=== PATIENT | male | born 1990 ===

== ENCOUNTER 2020-12-11 15:03 | Emergency (ER) | payer OTHER, SELFPAY ==
--- NOTE | ~2020-12-11 | CT_ITS ---
EXAMINATION: CT RIGHT HUMERUS CLINICAL INFORMATION: Assess for possible fracture COMPARISON: Radiographs the same day TECHNIQUE: Multidetector CT scan of the distal right humerus. Multiplanar reconstructions. FINDINGS: The radiographic finding corresponds to a band of periosteal bone formation without any acute cortical disruption. Appearance is consistent with an old injury. Radial head and neck intact. Joint spaces preserved. CT/CT elbow RT wo con IMPRESSION: No acute fracture. Chronic findings as above.
--- NOTE | ~2020-12-11 | XR_ITS ---
EXAMINATION: LEFT FOREARM 2 VIEWS RIGHT FOREARM 2 VIEWS RIGHT FOREARM 2 VIEWS CHEST 1 VIEW RIGHT HUMERUS 2 VIEWS LEFT HUMERUS 2 VIEWS LEFT WRIST 4 VIEWS RIGHT WRIST 4 VIEWS CLINICAL INFORMATION: Trauma. Ecchymosis. COMPARISON: None TECHNIQUE: As above FINDINGS: Right hand the wrist: Intact. Joint spaces preserved. Scaphoid intact. Left hand and wrist: Intact as well. No fracture or dislocation. Right forearm humerus: No deformity. Joint spaces maintained. No gross elbow effusion. No head and neck intact. Left forearm and humerus: Similarly intact. No focal lesion. Chest one view: No focal abnormality. Heart and mediastinal normal. XR/XR humerus RT IMPRESSION: No fracture. Normal chest.
--- NOTE | ~2020-12-11 | XR_ITS ---
EXAMINATION: LEFT FOREARM 2 VIEWS RIGHT FOREARM 2 VIEWS RIGHT FOREARM 2 VIEWS CHEST 1 VIEW RIGHT HUMERUS 2 VIEWS LEFT HUMERUS 2 VIEWS LEFT WRIST 4 VIEWS RIGHT WRIST 4 VIEWS CLINICAL INFORMATION: Trauma. Ecchymosis. COMPARISON: None TECHNIQUE: As above FINDINGS: Right hand the wrist: Intact. Joint spaces preserved. Scaphoid intact. Left hand and wrist: Intact as well. No fracture or dislocation. Right forearm humerus: No deformity. Joint spaces maintained. No gross elbow effusion. No head and neck intact. Left forearm and humerus: Similarly intact. No focal lesion. Chest one view: No focal abnormality. Heart and mediastinal normal. XR/XR forearm RT 2V IMPRESSION: No fracture. Normal chest.
--- NOTE | ~2020-12-11 | XR_ITS ---
EXAMINATION: LEFT FOREARM 2 VIEWS RIGHT FOREARM 2 VIEWS RIGHT FOREARM 2 VIEWS CHEST 1 VIEW RIGHT HUMERUS 2 VIEWS LEFT HUMERUS 2 VIEWS LEFT WRIST 4 VIEWS RIGHT WRIST 4 VIEWS CLINICAL INFORMATION: Trauma. Ecchymosis. COMPARISON: None TECHNIQUE: As above FINDINGS: Right hand the wrist: Intact. Joint spaces preserved. Scaphoid intact. Left hand and wrist: Intact as well. No fracture or dislocation. Right forearm humerus: No deformity. Joint spaces maintained. No gross elbow effusion. No head and neck intact. Left forearm and humerus: Similarly intact. No focal lesion. Chest one view: No focal abnormality. Heart and mediastinal normal. XR/XR humerus LT IMPRESSION: No fracture. Normal chest.
--- NOTE | ~2020-12-11 | XR_ITS ---
EXAMINATION: LEFT FOREARM 2 VIEWS RIGHT FOREARM 2 VIEWS RIGHT FOREARM 2 VIEWS CHEST 1 VIEW RIGHT HUMERUS 2 VIEWS LEFT HUMERUS 2 VIEWS LEFT WRIST 4 VIEWS RIGHT WRIST 4 VIEWS CLINICAL INFORMATION: Trauma. Ecchymosis. COMPARISON: None TECHNIQUE: As above FINDINGS: Right hand the wrist: Intact. Joint spaces preserved. Scaphoid intact. Left hand and wrist: Intact as well. No fracture or dislocation. Right forearm humerus: No deformity. Joint spaces maintained. No gross elbow effusion. No head and neck intact. Left forearm and humerus: Similarly intact. No focal lesion. Chest one view: No focal abnormality. Heart and mediastinal normal. XR/XR hand wrist RT IMPRESSION: No fracture. Normal chest.
--- NOTE | ~2020-12-11 | XR_ITS ---
EXAMINATION: LEFT FOREARM 2 VIEWS RIGHT FOREARM 2 VIEWS RIGHT FOREARM 2 VIEWS CHEST 1 VIEW RIGHT HUMERUS 2 VIEWS LEFT HUMERUS 2 VIEWS LEFT WRIST 4 VIEWS RIGHT WRIST 4 VIEWS CLINICAL INFORMATION: Trauma. Ecchymosis. COMPARISON: None TECHNIQUE: As above FINDINGS: Right hand the wrist: Intact. Joint spaces preserved. Scaphoid intact. Left hand and wrist: Intact as well. No fracture or dislocation. Right forearm humerus: No deformity. Joint spaces maintained. No gross elbow effusion. No head and neck intact. Left forearm and humerus: Similarly intact. No focal lesion. Chest one view: No focal abnormality. Heart and mediastinal normal. XR/XR forearm LT 2V IMPRESSION: No fracture. Normal chest.
--- NOTE | ~2020-12-11 | XR_ITS ---
EXAMINATION: LEFT FOREARM 2 VIEWS RIGHT FOREARM 2 VIEWS RIGHT FOREARM 2 VIEWS CHEST 1 VIEW RIGHT HUMERUS 2 VIEWS LEFT HUMERUS 2 VIEWS LEFT WRIST 4 VIEWS RIGHT WRIST 4 VIEWS CLINICAL INFORMATION: Trauma. Ecchymosis. COMPARISON: None TECHNIQUE: As above FINDINGS: Right hand the wrist: Intact. Joint spaces preserved. Scaphoid intact. Left hand and wrist: Intact as well. No fracture or dislocation. Right forearm humerus: No deformity. Joint spaces maintained. No gross elbow effusion. No head and neck intact. Left forearm and humerus: Similarly intact. No focal lesion. Chest one view: No focal abnormality. Heart and mediastinal normal. XR/XR chest 1V IMPRESSION: No fracture. Normal chest.
--- NOTE | ~2020-12-11 | XR_ITS ---
EXAMINATION: LEFT FOREARM 2 VIEWS RIGHT FOREARM 2 VIEWS RIGHT FOREARM 2 VIEWS CHEST 1 VIEW RIGHT HUMERUS 2 VIEWS LEFT HUMERUS 2 VIEWS LEFT WRIST 4 VIEWS RIGHT WRIST 4 VIEWS CLINICAL INFORMATION: Trauma. Ecchymosis. COMPARISON: None TECHNIQUE: As above FINDINGS: Right hand the wrist: Intact. Joint spaces preserved. Scaphoid intact. Left hand and wrist: Intact as well. No fracture or dislocation. Right forearm humerus: No deformity. Joint spaces maintained. No gross elbow effusion. No head and neck intact. Left forearm and humerus: Similarly intact. No focal lesion. Chest one view: No focal abnormality. Heart and mediastinal normal. XR/XR hand wrist LT IMPRESSION: No fracture. Normal chest.
[2020-12-11 15:33] VITALS: BP 137/76; PULSE 89; RESP 18; TEMP 36.1; O2SAT 100; BMI 21.3
--- NOTE | 2020-12-11 17:27 | ED_ITS ---
HPI - Fall General Chief Complaint: Fall Stated Complaint: fall Time Seen by Provider: 12/11/20 16:54 Source: patient and other (residential staff member ) Mode of arrival: ambulatory Limitations: other (Developmental delay) History of Present Illness HPI Narrative: 30-year-old male with a past medical history of being developmental delay currently residing at a [facility] with [facility] staff member at bedside with reports of bruising on the patient's bilateral arms of unknown cause and unknown when it occurred. Apparently the patient was at his day program today and they noticed all the bruising the question the patient he initially said he fell then he told them that he did not fall. The [facility]dc does not know how he obtain all these bruises. On exam patient just shows all his bruises although does not tell me how he obtained the bruises. Related Data Allergies Allergy/AdvReac Type Severity Reaction Status Date / Time No Known Allergies Allergy Verified 12/11/20 15:38 Review of Systems Review of Systems: Constitutional : No changes in activity, No lethargy, No recent prior head injury, No agitation, No increased fussiness ENT/Mouth : No Ear Pain, No Nasal discharge/drainage Eyes: No Eye Pain, No Swelling, No Redness, No Foreign Body, No Vision Changes Cardiovascular : No Chest Pain, No SOB Respiratory : No Cough Gastrointestinal : No Nausea, No Vomiting, No abdominal Pain Genitourinary : No Dysuria, No Urinary Frequency, No Urinary Incontinence, No Urgency, No Flank Pain Musculoskeletal : Positive joint pain to b/l upper arms/elbow/forearms/hand/wrist, No neck stiffness, No back pain/injury Skin : No lacerations Neuro : No unsteady gait, No Paresthesias, No Loss of Consciousness, No altered mental status, No Headache Yes all other systems are reviewed and are negative [facility] Past Medical History Attestation statement: The following information was validated with the patient. Social History Social History Advance Directives: No Advance Directives Information Provided: No Physical Exam Vital Signs: Vital Signs: Last Vital Signs Temp 97.0 F 12/11/20 15:33 Pulse 89 12/11/20 15:33 Resp 18 12/11/20 15:33 BP 137/76 12/11/20 15:33 Pulse Ox 100 12/11/20 15:33 Body Mass Index 21.3 vital signs have been reviewed as normal and appeared to be correct. Blood pressure normal. Heart rate normal. Respiration rate normal. Temperature normal. Oxygen saturation normal. Appearance: Alert. Developmentally any delayed at baseline. No acute distress. Head: Normal external exam. Normocephalic. Atraumatic. Eyes: PERRLA. EOMI. Conjunctiva and sclera normal. Eyelids normal. ENT: Pharynx normal. Uvula midline. Moist mucous membranes. Neck: Normal inspection. Neck supple. FROM. No adenopathy. No meningeal signs. No signs of trauma. Nontender to mid cervical and bilateral paracervical musculature. CVS: Normal heart rate and rhythm. Heart sound normal. Pulses normal throughout. No murmurs/rales/gallops. Respiratory: No respiratory distress. Painless inspiration. Breath sounds normal. No wheezes/rales/rhonchi noted. Chest patient is also noted to have the old bruise to left upper anterior chest wall with mild tenderness to palpation. Not consistent with flail chest. No accessory muscle usage noted or decreased air movement noted. Abdomen: Soft and nontender. Bowel sounds normal in all 4 quadrants. No distention noted. No organomegaly noted. No visible injury noted. No signs of trauma. Back: Full range of motion noted. No ecchymoses/abrasions/lacerations/ rashes/lesion/induration/fluctuance or signs of infection noted. No visible injuries. Nontender to mid thoracic/lumbar spine and paraspinous musculature. Skin: Skin warm and dry. Normal skin color. Normal skin turgor. No rashes/lesions/lacerations noted. Extremities: Patient is noted to have multiple bruises on bilateral arms of different stages he is tender to bilateral arms from the upper humerus aspect to bilateral elbows bilateral forearms and bilateral hands and wrist. Patient has full range of motion of all joints of shoulder/elbow/wrist and hand and fingers. No obvious deformities are noted. No ligamentous laxity noted to any joints. Otherwise all other Extremities exhibit normal range of motion and nontender. Neuro: Developmentally delayed at baseline. No motor deficit. No sensory deficit. Reflexes normal. Normal steady gait. No focal neuro deficits noted. Vascular: + radial pulses/+ 2 distal pedal pulses/+2 dorsalis pedis b/l. Normal cap refill. No cyanosis noted to upper extremity nails and lower extremity toes nails. Course Course Course Narrative: 17pm - 30-year-old male with a past medical history of being developmental delay currently residing at a [facility] with [facility] staff member at bedside with reports of bruising on the patient's bilateral arms of unknown cause and unknown when it occurred. Apparently the patient was at his day program today and they noticed all the bruising the question the patient he initially said he fell then he told them that he did not fall. The [facility]dc does not know how he obtain all these bruises. On exam patient just shows all his bruises although does not tell me how he obtained the bruises. On exam patient is noted to have multiple different stage bruises to b/l arms and left upper anterior chest wall. No other signs of trauma/bruises to the rest of the body. Neck is supple and nontender. Pt has FROM of all joints. Nontender to abdomen. Lower extremities no signs of trauma. Plan: Xrays of arms and chest then re-evaluate. Reevaluation(s) Reevaluation #1: - x-ray of right forearm revealed minimal step-off within the distal humerus metaphysis aspect not reproduced on humeral series highly suspicious for a nondisplaced fracture. With overlying soft tissue swelling. - all other x-rays are within normal limits no acute processes or fractures noted. - therefore consulted with Orthopedics and they reported that since his only shadowing and one-view they are requesting a CT scan to make sure there is no more involvement into the joint and they reported that they would recommend a posterior long-arm splint and sling and follow-up. Therefore CT scan of right elbow ordered at this time. residential staff member updated she understands agrees with this plan. - Sign out to Shon Carter PA-C at this time pending above. Time: 18:51 MDM - Fall Medical Records Attestation: I reviewed the patient's medical records. Imaging Data Chest x-ray//bilateral forearm/hand and wrist xrays x-rays x-ray: Attestation: I personally reviewed and interpreted this imaging study as follows: Radiologist's impression: FINDINGS: Right hand the wrist: Intact. Joint spaces preserved. Scaphoid intact. Left hand and wrist: Intact as well. No fracture or dislocation. Right forearm humerus: No deformity. Joint spaces maintained. No gross elbow effusion. No head and neck intact. Left forearm and humerus: Similarly intact. No focal lesion. Chest one view: No focal abnormality. Heart and mediastinal normal.? XR/XR humerus RT IMPRESSION: No fracture. ? Normal chest.? On the AP forearm view, there is a minimal step off within the distal humeral metaphysis radial aspect not reproduced on the humeral series highly suspicious for a nondisplaced fracture. Overlying soft tissue swelling. Wet reading provided. Discharge Plan Discharge Clinical Impression: Closed fracture of distal end of right humerus, Multiple ecchymoses of both upper arms, Superficial bruising of chest wall Patient Disposition: Home, Self-Care Instructions: Elbow Fracture (ED), Contusion in Adults (ED), Ecchymosis (ED) Referrals: Elio Field MD [Physician] - 12/14/20 (Call Monday to make a follow-up appointment within a week) Print Language: Ch[place]
== END 2020-12-11 20:33 | disposition home or self-care (01) ==
PROVIDERS: Emergency Provider Emergency Medicine; PCP Internal Medicine
DX: S42.401A Unspecified fracture of lower end of right humerus, initial encounter for closed fracture (principal); S40.022A Contusion of left upper arm, initial encounter; S40.021A Contusion of right upper arm, initial encounter; S50.02XA Contusion of left elbow, initial encounter; S50.01XA Contusion of right elbow, initial encounter; S50.12XA Contusion of left forearm, initial encounter; S50.11XA Contusion of right forearm, initial encounter; S60.212A Contusion of left wrist, initial encounter; S60.211A Contusion of right wrist, initial encounter; S20.212A Contusion of left front wall of thorax, initial encounter; X58.XXXA Exposure to other specified factors, initial encounter; R62.50 Unspecified lack of expected normal physiological development in childhood; Y93.9 Activity, unspecified; Y92.049 Unspecified place in boarding-house as the place of occurrence of the external cause; Y99.9 Unspecified external cause status
CPT/HCPCS: 29105; 71045; 73060; 73090; 73110; 73130; 73200; 99283; 99284

== ENCOUNTER 2021-01-15 06:30 | Outpatient (REF) | payer OTHER, SELFPAY ==
[2021-01-15 07:49] LABS: MANUAL DIFF FLAG NO
[2021-01-15 08:00] LABS: Basophils Percent Auto 0.4 % (0-2); Eosinophils Absolute Auto 0.1 X10*3/uL (0.0-0.4); Eosinophils Percent Auto 1.5 % (0-4); Hemoglobin 13.7 g/dl (14.0-18.0); Imm Gran Abs Auto 0.04 X10*3/uL (0.00-0.03); Imm Gran Pct Auto 0.8 % (0.0-0.4); Immature Retic Fraction 7.7 % (2.3-13.4); Lymphocytes Absolute Auto 1.2 X10*3/uL (1.2-4.9); Lymphocytes Percent Auto 21.8 % (20-40); Mean Corpuscular HGB Conc 33.4 g/dl (31.0-36.0); Mean Corpuscular Hemoglobin 30.4 pg (27.0-33.0); Mean Corpuscular Volume 91.1 fL (80-98); Mean Platelet Volume 9.6 fL (9.4-12.4); Monocytes Absolute Auto 0.6 X10*3/uL (0.1-1.2); Monocytes Percent Auto 11.3 % (2-11); Neutrophils Absolute Auto 3.4 X10*3/uL (2.0-8.3); Neutrophils Percent Auto 64.2 % (45-73); Platelet Count 239 X10*3/uL (160-400); Red Cell Distribution Width 13.9 % (11.0-16.0); Reticulocyte Percent 1.8 % (0.5-1.8); Reticulocytes Absolute 0.083 X10*6/uL (0.026-0.095); White Blood Count 5.3 X10*3/uL (4.8-10.8)
[2021-01-15 08:19] LABS: Alanine Aminotransferase 34 U/L (0-40); Albumin Level 4.7 g/dL (3.5-5.0); Alkaline Phosphatase 64 U/L (39-117); Anion Gap 13 (12-20); Aspartate Amino Transferase 25 U/L (5-37); Bilirubin Total 0.4 mg/dL (0.0-1.0); Blood Urea Nitrogen 16 mg/dL (9-16); Calcium 9.5 mg/dL (8.4-10.2); Carbon Dioxide 26 mmol/L (22-29); Chloride 107 mmol/L (96-108); Cholesterol 215 mg/dL; Estimated Glomerular Filt Rate > 60; Glucose Random 97 mg/dL (60-115); HDL Cholesterol 48 mg/dL; Iron 57 mcg/dL (45-160); LDL Cholesterol Calculated 153 mg/dl; Percent Iron Saturation 15 % (15-50); Potassium 4.4 mmol/L (3.3-5.1); Sodium 142 mmol/L (135-145); Total Iron Binding Capacity 387 mcg/dL (228-428); Total Protein 7.2 g/dL (6.5-8.0); Triglycerides 71 mg/dL; Unsaturated Iron Binding 330 ug/dL
[2021-01-15 08:42] LABS: Ferritin 95 ng/mL (20-250)
[2021-01-15 08:49] LABS: Folate 15.1 ng/mL (> or = 4.0); Vitamin B12 327 pg/mL (200-900)
== END 2021-01-15 06:31 | disposition home or self-care (01) ==
LOC: HO.LAB 06:30
PROVIDERS: PCP Internal Medicine; Visit Provider Internal Medicine
DX: E78.00 Pure hypercholesterolemia, unspecified (principal)
CPT/HCPCS: 36415; 80053; 80061; 82607; 82728; 82746; 83540; 84439; 84443; 85025; 85045

== ENCOUNTER 2022-03-19 07:44 | Outpatient (REF) | payer OTHER, SELFPAY ==
[2022-03-19 07:52] LABS: MANUAL DIFF FLAG NO
[2022-03-19 08:26] LABS: Basophils Percent Auto 0.2 % (0-2); Eosinophils Absolute Auto 0.1 X10*3/uL (0.0-0.4); Eosinophils Percent Auto 2.4 % (0-4); Hematocrit 40.6 % (42.0-52.0); Hemoglobin 13.7 g/dl (14.0-18.0); Imm Gran Abs Auto 0.02 X10*3/uL (0.00-0.03); Imm Gran Pct Auto 0.4 % (0.0-0.4); Immature Retic Fraction 8.7 % (2.3-13.4); Lymphocytes Percent Auto 22.8 % (20-40); Mean Corpuscular HGB Conc 33.7 g/dl (31.0-36.0); Mean Corpuscular Hemoglobin 30.6 pg (27.0-33.0); Mean Corpuscular Volume 90.8 fL (80.0-98.0); Mean Platelet Volume 9.5 fL (9.4-12.4); Monocytes Absolute Auto 0.5 X10*3/uL (0.1-1.2); Monocytes Percent Auto 10.7 % (2-11); Neutrophils Absolute Auto 2.9 x10*3/uL (2.0-8.3); Neutrophils Percent Auto 63.5 % (45-73); Platelet Count 212 X10*3/uL (160-400); Red Blood Count 4.47 X10*6/uL (4.60-5.80); Red Cell Distribution Width 13.2 % (11.0-16.0); Retic HGB Equivalent 35.6 pg (30.0-35.0); Reticulocyte Percent 1.3 % (0.5-1.8); Reticulocytes Absolute 0.059 X10*6/uL (0.026-0.095); White Blood Count 4.6 X10*3/uL (4.8-10.8)
[2022-03-19 09:26] LABS: Alanine Aminotransferase 37 U/L (0-40); Albumin Level 4.5 g/dL (3.5-5.0); Alkaline Phosphatase 61 U/L (39-117); Anion Gap 14 (12-20); Aspartate Amino Transferase 21 U/L (5-37); Bilirubin Total 0.4 mg/dL (0.0-1.0); Blood Urea Nitrogen 21 mg/dL (9-16); Calcium 9.3 mg/dL (8.4-10.2); Carbon Dioxide 23 mmol/L (22-29); Chloride 108 mmol/L (96-108); Cholesterol 204 mg/dL; Estimated Glomerular Filt Rate > 60; Ferritin 105 ng/mL (20-250); Free T4 (Free Thyroxine) 0.92 ng/dL (0.71-1.85); Glucose Random 90 mg/dL (60-115); HDL Cholesterol 57 mg/dL; Iron 99 mcg/dL (45-160); LDL Cholesterol Calculated 137 mg/dl; Percent Iron Saturation 30 % (15-50); Potassium 4.5 mmol/L (3.3-5.1); Sodium 140 mmol/L (135-145); Thyroid Stimulating Hormone 3.86 uIU/mL (0.32-4.0); Total Iron Binding Capacity 327 mcg/dL (228-428); Triglycerides 50 mg/dL; Unsaturated Iron Binding 228 ug/dL
[2022-03-19 09:37] LABS: Folate 10.7 ng/mL (> or = 4.0); Vitamin B12 441 pg/mL (200-900)
== END 2022-03-19 07:45 | disposition home or self-care (01) ==
LOC: HO.LAB 07:44
PROVIDERS: PCP Internal Medicine; Visit Provider Internal Medicine
DX: E78.00 Pure hypercholesterolemia, unspecified (principal); F63.81 Intermittent explosive disorder; D64.9 Anemia, unspecified
CPT/HCPCS: 36415; 80053; 80061; 82607; 82728; 82746; 83540; 84439; 84443; 85025; 85045

== ENCOUNTER 2023-02-03 10:23 | Outpatient (AMB) | payer OTHER, SELFPAY ==
--- NOTE | 2023-02-03 10:27 | A.OFFPC_ITS ---
Vital Signs 02/03/23 10:28 Height 5 ft 2.6 in Weight 109 lb BMI 19.6 BP 116/70 Blood Pressure Location Lt brachial Position Sitting Pulse 68 Pulse Source Pulse Oximeter Pulse Oximetry (%) 98 Oxygen Delivery Method Room Air Intake Visit Reasons: PE+ NEEDS PHQ9/THRIVE Allergies No Known Allergies Allergy (Verified 02/03/23 10:28) Medication List - Last Reconciled 02/03/23 by Rl Morgan MD acetaminophen (Tylenol Extra Strength) 500 mg PO QID PRN clonidine HCl 0.1 mg PO BEDTIME ketoconazole 2% 1 appl topical 2XW oxcarbazepine (Trileptal) 150 mg PO BID [WATERPROOF mattress As directed] Tobacco use date assessed: 02/03/23 Dental Screening Dental Screen Date: 02/03/23 Did you have a dental visit in the last 12 months?: Yes Did you have a dental problem in the last 6 months where you did not have access to dental care?: No Was dental information given to patient?: Patient has dentist HPI PE+ NEEDS PHQ9/THRIVE HPI Details 33-year-old male with developmental sima y mental behavior problem diplegia with intact intermittent explosive disorder coming in for physical exam. Last seen in March 2022. Patient is here for physical exam [facility] Medical History (Updated 02/03/23 @ 11:09 by Rl Morgan MD) Ribs, multiple fractures Hypercholesterolemia Constipation Intermittent explosive disorder Diplegia of both lower extremities Mental and behavioral problem Social History (Updated 01/17/22 @ 10:04 by Rl Morgan MD) Housing: Other Alcohol intake: never Patient Tobacco Use Status: Never used Tobacco e-Cigarette/Vaping Use: Never Used Second Hand Smoke Exposure: No Current occupational status: disabled Cognitive needs: No Hearing needs: No Vision needs: No Questionnaire PHQ-9 Over the last 2 weeks, how often have you been bothered by any of the following problems? 1. Little interest or pleasure in doing things: not at all 2. Feeling down, depressed, or hopeless: not at all 3. Trouble falling or staying asleep, or sleeping too much: not at all 4. Feeling tired or having little energy: not at all 5. Poor appetite or overeating: not at all 6. Feeling bad about yourself - or that you are a failure or have let yourself or your family down: not at all 7. Trouble concentrating on things, such as reading the newspaper or watching television: not at all 8. Moving or speaking so slowly that other people could have noticed. Or the opposite - being so fidgety or restless that you have been moving around a lot more than usual: not at all 9. Thoughts that you would be better off or of hurting yourself in some way: not at all Total score: 0 Depression Screening Interpretation: Negative Depression Screening Done: Yes Source: Developed by Drs. Juan Carlos Kaplan, Marilu Tello, Everardo Carpio and colleagues, with an educational hoang from [employer]. Thrive Questionnaire Date Thrive assessed: 02/03/23 I am a: Parent/Caregiver What is your living situation today?: I have a steady place to live Within the past 12 months, did the food you bought not last and you didn't have the money to get more?: Never true Within the past 12 months, did you worry whether your food would run out before you got money to buy more?: Never true Do you have trouble paying for medicines?: No Do you have trouble getting transportation to medical appointments?: No Do you have trouble paying your heating and electricity bill?: No Do you have trouble taking care of your child, family member or friend?: No Do you have trouble with day-to-day activities such as bathing, preparing meals, shopping, managing finances, etc.?: No Are you currently unemployed and looking for a job?: No Are you interested in more education?: No Currently or been in a relationship where the following occur: no concerns reported AUDIT C Alcohol Use Questionnaire (AUDIT-C) 1. How often do you have a drink containing alcohol?: Never 3. How often do you have six or more drinks on one occasion?: Never Total Score: 0 ROYER-7 AMB Questionnaire ROYER-7 Date ROYER - 7 assessed: 02/03/23 Feeling nervous, anxious, or on edge: 0 = Not at all Not being able to stop or control worryin = Not at all Worrying too much about different things: 0 = Not at all Trouble relaxin = Not at all Being so restless that it is hard to sit still: 0 = Not at all Becoming easily annoyed or irritable: 0 = Not at all Feeling afraid as if something awful might happen: 0 = Not at all Total ROYER-7 score (0-4 normal; 5-9 mild; 10-14 moderate; 15-21 severe): 0 Source: Developed by Drs. Juan Carlos Kaplan, Marilu Tello, Everardo Carpio and colleagues, with an educational hoang from [employer]. Review of Systems Const Denies poor appetite and Denies weakness Eyes Denies no additional complaints ENT Reports Normal hearing present, Denies dizziness, Denies nasal congestion, Denies tinnitus and Denies sore throat Card Denies chest pain, Denies syncope, Denies rapid heart rate and Denies dyspnea Resp Denies cough and Denies dyspnea GI Denies change in stool character, Reports constipation, Denies diarrhea, Denies nausea and Denies vomiting Denies dysuria and Denies urinary frequency Neuro Reports Normal hearing present, Denies confusion, Denies dizziness, Denies syncope and Denies weakness Psych Denies confusion Physical exam (Primary Care) Vital Signs: Last Vital Signs Pulse 68 02/03/23 10:28 BP 116/70 02/03/23 10:28 Pulse Ox 98 02/03/23 10:28 Oxygen Delivery Method Room Air 02/03/23 10:28 BMI result Body Mass Index 19.6 Tobacco/Smoking Status: Tobacco use Status Tobacco use date assessed 02/03/23 02/03/23 10:30 Patient Tobacco Use Status Never used Tobacco 02/03/23 10:30 e-Cigarette/Vaping Use Never Used 02/03/23 10:30 PHQ-9: PHQ-9 Score PHQ-9: Total score 0 02/03/23 10:30 Depression Screening Interpretation: Negative Thrive Assessment: Date of Thrive Assessment Date Thrive assessed 02/03/23 02/03/23 10:30 Currently or been in a relationship where the following occur: no concerns reported Const General: No confusion Orientation/consciousness: No confusion HENMT Other: impacted cerumen bilateral Head: Yes normocephalic Ears: external ears normal Face and sinus: Yes normal facial exam Mouth: moist mucous membranes Throat: Yes tonsils normal Eyes Conjunctivae: conjunctivae normal Pupils: Equal, round and reactive pupils present and Pupil accommodation reflex normal Direct Ophthalmoscopy: normal light reflex Neck Neck: No lymphadenopathy Thyroid: Thyroid normal Chest Chest palpation & inspection: normal inspection of the chest Resp Effort & Inspection: normal respiratory effort and no audible wheezes Auscultation: clear to auscultation bilaterally, no crackles, no wheezes and lung sounds not diminished Cardio Rate: regular rate Rhythm: regular rhythm Peripheral pulses: radial pulses present and dorsalis pedis present GI Other: visual rectal exam negative Palpation (GI): no masses Auscultation: normal bowel sounds and normoactive bowel sounds Rectal Exam - Male: Yes deferred Male General Exam: Yes normal external exam Skin General skin exam: no rashes or lesions noted Rashes: no rashes Neuro General: No confusion Cranial nerves: Yes Equal, round and reactive pupils present and Yes Normal hearing present Cognition (Neuro): normal cognition Gait exam (Neuro): Normal gait present Motor exam (neuro): 5/5 motor strength present throughout Deep tendon reflexes (DTR's): Right brachioradialis reflex intensity grade: 2+, Left brachioradialis reflex intensity grade: 2+, Right patellar reflex intensity grade: 2+ and Left patellar reflex intensity grade: 2+ Extrem General: No edema Office Procedures Cerumen Removal From which ear canal was the cerumen removed: bilateral Removal: otoscope w/curette and cerumen loop/spoon Notes: patient tolerated procedure well, no complications and ear canal clear [id number] Wax Removal by Spoon/Curette Flu Questionnaire Does the patient have a severe egg allergy?: No Does the patient have severe life threatening allergies?: No Does the patient have a fever or illness today?: No Has the patient ever had Guillain-P[place]mouth Syndrome?: No Has the patient ever had any past reaction to a flu shot?: No Immunizations flu vacc [id number] 6mos up(PF) 60 mcg(15 mcgx4)/0.5 mL IM syringe Performing Provider: Rl Morgan MD Performing Location: [facility] Administered by: Melissa Bowden CMA on 02/03/23 10:40 Dose Route Admin Location Dispensed Lot Number Expiration Date NDC Secretary To Board Of Commissioners 0.5 mL IM Left Deltoid 0.5 mL [id number] 10/22/23 84083-099-30 [employer] VIS Given Date VIS Provided VIS Publication Date 02/03/23 Single Vaccine 20 Eligibility Eligibility Date Funding Source Not [facility] Eligible 02/03/23 Private Assessment and Plan Assessment & Plan (1) Annual physical exam: Code(s): Z00.00 - Encounter for general adult medical examination without abnormal findings (2) Intermittent explosive disorder: Comment: Code(s): F63.81 - Intermittent explosive disorder Plan: Continue to follow-up with Psychiatry (3) Diplegia of both lower extremities: Comment: 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 Be it pork or beef they have a lot of cholesterol LDL goal of less than 130 and triglyceride of less than 150 (6) Impacted cerumen of both ears: Code(s): H61.23 - Impacted cerumen, bilateral Plan: scoop used L tm perforated, R tm intact (7) Perforated ear drum: Comment: left ear Code(s): H72.90 - Unspecified perforation of tympanic membrane, unspecified ear Plan: will treat as otitis media Orders: Orders Thyroid Stimulating Hormone Today R32 - Unspecified urinary incontinence Free T4 (Free Thyroxine) Today R32 - Unspecified urinary incontinence Lipid Panel Today E78.00 - Pure hypercholesterolemia, unspecified Influenza [id number] Immunization Today Z23 - Encounter for immunization Complete Blood Count Auto Diff Today D64.9 - Anemia, unspecified Comprehensive Met. Panel Today D64.9 - Anemia, unspecified Ferritin Today D64.9 - Anemia, unspecified IRON PROFILE Today D64.9 - Anemia, unspecified Vitamin B12 and Folate Today D64.9 - Anemia, unspecified UA w Microscopic Today R32 - Unspecified urinary incontinence Medications: New clonidine HCl 0.2 mg PO BEDTIME 30 tabs 0RF H72.90 - Unspecified perforation of tympanic membrane, unspecified ear amoxicillin-pot clavulanate 875-125 mg 1 tab PO BID 14 tabs 0RF H72.90 - Unspecified perforation of tympanic membrane, unspecified ear Coding Level of Care Code Est Pt Prev Care 18-39y(21546) Diagnoses Annual physical exam Z00.00 Intermittent explosive disorder F63.81 Diplegia of both lower extremities G82.20 Anemia D64.9 Hypercholesterolemia E78.00 Impacted cerumen of both ears H61.23 Perforated ear drum H72.90 CPT Codes Office Procedure - CPT: 08846-[id number] Wax Removal by Spoon/Curette ([id number])
[2023-02-03 10:28] VITALS: BP 116/70; PULSE 68; O2SAT 98; BMI 19.6
== END 2023-02-03 11:23 | disposition home or self-care (01) ==
PROVIDERS: PCP Internal Medicine; Visit Provider Internal Medicine
DX: Z00.00 Encounter for general adult medical examination without abnormal findings (principal); Z23 Encounter for immunization; G82.20 Paraplegia, unspecified; D64.9 Anemia, unspecified; H61.23 Impacted cerumen, bilateral; F63.81 Intermittent explosive disorder
CPT/HCPCS: 69210; 90471; 90686; 99395

== ENCOUNTER 2023-02-10 09:27 | Outpatient (REF) | payer OTHER, SELFPAY ==
[2023-02-10 10:00] LABS: MANUAL DIFF FLAG NO
[2023-02-10 10:16] LABS: Basophils Percent Auto 0.2 % (0-2); Eosinophils Absolute Auto 0.1 X10*3/uL (0.0-0.4); Eosinophils Percent Auto 1.4 % (0-4); Hematocrit 42.9 % (42.0-52.0); Hemoglobin 14.8 g/dl (14.0-18.0); Imm Gran Abs Auto 0.01 X10*3/uL (0.00-0.03); Imm Gran Pct Auto 0.2 % (0.0-0.4); Lymphocytes Absolute Auto 1.4 X10*3/uL (1.2-4.9); Lymphocytes Percent Auto 32.9 % (20-40); Mean Corpuscular HGB Conc 34.5 g/dl (31.0-36.0); Mean Corpuscular Hemoglobin 30.8 pg (27.0-33.0); Mean Corpuscular Volume 89.4 fL (80.0-98.0); Mean Platelet Volume 9.4 fL (9.4-12.4); Monocytes Absolute Auto 0.5 X10*3/uL (0.1-1.2); Neutrophils Absolute Auto 2.3 x10*3/uL (2.0-8.3); Neutrophils Percent Auto 54.3 % (45-73); Platelet Count 252 X10*3/uL (160-400); Red Cell Distribution Width 13.7 % (11.0-16.0); White Blood Count 4.2 X10*3/uL (4.8-10.8)
[2023-02-10 10:37] LABS: Appearance Urine Clear; Color Urine Yellow; Glucose Urine UA Negative (Negative); Leukocyte Esterase Urine Negative (Negative); Nitrite Urine Negative (Negative); PH 8.5 (5.0-9.0); Urine Blood Negative (Negative); Urine Ketones Negative (Negative); Urine Protein Negative (Neg-Trace)
[2023-02-10 10:44] LABS: Bacteria Urine None Seen (None Seen); Hyaline Casts Urine 0-2 /LPF (0-2); RBC Urine 0-2 /HPF (0-2); Squamous Epithelial Cell Urine 0-2 /HPF (0-2); WBC Urine 0-5 /HPF (0-5)
[2023-02-10 10:54] LABS: Alanine Aminotransferase 19 U/L (0-40); Albumin Level 4.8 g/dL (3.5-5.0); Alkaline Phosphatase 58 U/L (39-117); Anion Gap 13 (12-20); Aspartate Amino Transferase 18 U/L (5-37); Bilirubin Total 0.6 mg/dL (0.0-1.0); Blood Urea Nitrogen 14 mg/dL (9-16); Calcium 10.1 mg/dL (8.4-10.2); Carbon Dioxide 27 mmol/L (22-29); Chloride 104 mmol/L (96-108); Cholesterol 188 mg/dL (<200); Estimated Glomerular Filt Rate > 60; Glucose Random 90 mg/dL (60-115); HDL Cholesterol 54 mg/dL (>40); Iron 78 mcg/dL (45-160); LDL Cholesterol Calculated 123 mg/dL (<100); Percent Iron Saturation 27 % (15-50); Potassium 4.7 mmol/L (3.3-5.1); Sodium 139 mmol/L (135-145); Total Iron Binding Capacity 291 mcg/dL (228-428); Total Protein 7.7 g/dL (6.5-8.0); Triglycerides 56 mg/dL (<150); Unsaturated Iron Binding 213 ug/dL
[2023-02-10 11:12] LABS: Ferritin 166 ng/mL (20-250); Free T4 (Free Thyroxine) 0.99 ng/dL (0.71-1.85); Thyroid Stimulating Hormone 2.22 uIU/mL (0.32-4.0)
[2023-02-10 11:29] LABS: Folate 13.1 ng/mL (> or = 4.0); Vitamin B12 567 pg/mL (200-900)
== END 2023-02-10 09:28 | disposition home or self-care (01) ==
LOC: HO.LAB 09:27
PROVIDERS: PCP Internal Medicine; Visit Provider Internal Medicine
DX: R32 Unspecified urinary incontinence (principal); E78.00 Pure hypercholesterolemia, unspecified; D64.9 Anemia, unspecified
CPT/HCPCS: 36415; 80053; 80061; 81001; 82607; 82728; 82746; 83540; 84439; 84443; 85025

== ENCOUNTER 2023-05-24 08:35 | Outpatient (AMB) | payer OTHER, SELFPAY ==
--- NOTE | 2023-05-24 08:37 | MHC.PC.OV ---
Vital Signs 05/24/23 08:38 Height 5 ft 2.6 in Weight 107 lb BMI 19.2 BP 110/72 Blood Pressure Location Lt brachial Position Sitting Pulse 73 Pulse Source Pulse Oximeter Pulse Oximetry (%) 100 Oxygen Delivery Method Room Air Intake Visit Reasons: otitis media, TD needed Allergies No Known Allergies Allergy (Verified 05/24/23 08:39) Tobacco use date assessed: 05/24/23 Dental Screening Dental Screen Date: 05/24/23 HPI otitis media, TD needed HPI Details 33-year-old male with mental and behavior problem last seen in January 2023. Patient has an intermittent explosive disorder having diplegia of both lower extremities anemia hypercholesterolemia coming in for follow-up. Last seen having a left eardrum perforated treated as otitis media. [facility] Medical History (Updated 02/03/23 @ 11:09 by Rl Morgan MD) Ribs, multiple fractures Hypercholesterolemia Constipation Intermittent explosive disorder Diplegia of both lower extremities Mental and behavioral problem Social History (Updated 01/17/22 @ 10:04 by Rl Morgan MD) Housing: Other Alcohol intake: never Patient Tobacco Use Status: Never used Tobacco e-Cigarette/Vaping Use: Never Used Second Hand Smoke Exposure: No Current occupational status: disabled Cognitive needs: No Hearing needs: No Vision needs: No Questionnaire Thrive Questionnaire Date Thrive assessed: 05/24/23 I am a: Parent/Caregiver What is your living situation today?: I have a steady place to live Within the past 12 months, did the food you bought not last and you didn't have the money to get more?: Never true Within the past 12 months, did you worry whether your food would run out before you got money to buy more?: Never true Do you have trouble paying for medicines?: No Do you have trouble getting transportation to medical appointments?: No Do you have trouble paying your heating and electricity bill?: No Do you have trouble taking care of your child, family member or friend?: No Do you have trouble with day-to-day activities such as bathing, preparing meals, shopping, managing finances, etc.?: No Are you currently unemployed and looking for a job?: No Are you interested in more education?: No Please select the resources that you would like help with: None THRIVE Score: 0 ROYER-7 AMB Questionnaire ROYER-7 Date ROYER - 7 assessed: 05/24/23 Source: Developed by Drs. Juan Carlos Kaplan, Marilu Tello, Everardo Carpio and colleagues, with an educational hoang from [employer]. Physical exam (Primary Care) Vital Signs: Oxygen Delivery Method Room Air 05/24/23 08:38 BMI result Body Mass Index 19.2 Tobacco/Smoking Status: Tobacco use Status Tobacco use date assessed 02/03/23 02/03/23 10:30 Patient Tobacco Use Status Never used Tobacco 02/03/23 10:30 e-Cigarette/Vaping Use Never Used 02/03/23 10:30 Thrive Assessment: Date of Thrive Assessment Date Thrive assessed 02/03/23 02/03/23 10:30 Const General: alert; No acute distress Eyes Conjunctivae: conjunctivae normal Resp Auscultation: clear to auscultation bilaterally Cardio Rate: regular rate Rhythm: regular rhythm GI Inspection: Yes normal to inspection Extrem General: Yes normal to inspection and No edema Assessment and Plan Assessment & Plan (1) Developmental delay, moderate: Code(s): R62.50 - Unspecified lack of expected normal physiological development in childhood Plan: Continue to follow-up with counseling and therapy (2) Hypercholesterolemia: Code(s): E78.00 - Pure hypercholesterolemia, unspecified Plan: Avoid fried foods, chicken skin, eggs, butter margarine, pastries and meat. Be it pork or beef they have a lot of cholesterol LDL goal of less than 130 and triglyceride of less than 150. Recent blood work in January normal (3) Intermittent explosive disorder: Comment: Code(s): F63.81 - Intermittent explosive disorder Plan: Continue to follow-up with counseling and therapy (4) Anemia: Code(s): D64.9 - Anemia, unspecified Plan: Resolved Coding Level of Care Code Est Pt Level 4 (73214) Diagnoses Developmental delay, moderate R62.50 Hypercholesterolemia E78.00 Intermittent explosive disorder F63.81 Anemia D64.9
[2023-05-24 08:38] VITALS: BP 110/72; PULSE 73; O2SAT 100; BMI 19.2
== END 2023-05-24 08:57 | disposition home or self-care (01) ==
PROVIDERS: PCP Internal Medicine; Visit Provider Internal Medicine
DX: R62.50 Unspecified lack of expected normal physiological development in childhood (principal); E78.00 Pure hypercholesterolemia, unspecified; F63.81 Intermittent explosive disorder; D64.9 Anemia, unspecified
CPT/HCPCS: 99214

== ENCOUNTER 2023-11-01 12:52 | Outpatient (AMB) | payer OTHER, SELFPAY ==
[2023-11-01 12:55] VITALS: BP 110/78; PULSE 59; O2SAT 100; BMI 19.4
--- NOTE | 2023-11-01 12:55 | A.OFFPC_ITS ---
Vital Signs 11/01/23 12:55 Height 5 ft 2.6 in Weight 108 lb 0.6 oz BMI 19.4 BP 110/78 Blood Pressure Location Lt brachial Position Sitting Pulse 59 Pulse Source Pulse Oximeter Pulse Oximetry (%) 100 Oxygen Delivery Method Room Air Intake Visit Reasons: Stacy 6.30 rt swollen cheek Intake Note: Patient is here to follow-up after a visit the emergency department at [facility] on 10/22/2023. [employer] Cutter Required: No Allergies No Known Allergies Allergy (Verified 11/01/23 12:56) Medication List - Last Reconciled 11/01/23 by Treva Garza PA-C acetaminophen (Tylenol Extra Strength) 500 mg PO QID PRN amoxicillin 500 mg PO TID clonidine HCl 0.2 mg PO BEDTIME ketoconazole 2% 1 appl topical 2XW oxcarbazepine (Trileptal) 150 mg PO BID [WATERPROOF mattress As directed] Tobacco use date assessed: 05/24/23 Dental Screening Dental Screen Date: 05/24/23 HPI Stacy 6.30 rt swollen cheek HPI Details 33-year-old male with past history of be havioral problem and hypercholesterolemia last seen by Dr. Morgan 05/13/2023 coming in for [facility] ED follow -up 10/22/2023 for right swollen cheek. ER notes from [facility] were requested and have not yet been sent over. Per report from patient's fruit farmer they went to the ER for ride sided cheek swelling, ear pain, and fever which was believed to be an allergic reaction or ear infection. In the ER he was swabbed for strep throat which was positive, and patient was given Amoxicillin Reports from fruit farmer patient has been doing much better with the ear pain and sore throat. Symptoms have almost completely resolved and is no longer complaining of difficulty or painful swallowing or cheek swelling. She does mentioned he has bumps on his forehead she would like a referral for Dermatology. These bumps have been consistent since she has assumed care of the patient in July. The bumps have not grown, are not painful or red and do not have discharge. [facility] Medical History Ribs, multiple fractures Hypercholesterolemia Constipation Intermittent explosive disorder Diplegia of both lower extremities Mental and behavioral problem Social History Housing: Other Alcohol intake: never Patient Tobacco Use Status: Never used Tobacco e-Cigarette/Vaping Use: Never Used Second Hand Smoke Exposure: No service: No Current occupational status: disabled Cognitive needs: No Hearing needs: No Vision needs: No Questionnaire Thrive Questionnaire Date Thrive assessed: 05/24/23 AUDIT C Alcohol Use Questionnaire (AUDIT-C) 1. How often do you have a drink containing alcohol?: Never 3. How often do you have six or more drinks on one occasion?: Never Total Score: 0 ROYER-7 AMB Questionnaire ROYER-7 Date ROYER - 7 assessed: 05/24/23 Source: Developed by Drs. Juan Carlos Kaplan, Marilu Tello, Everardo Carpio and colleagues, with an educational hoang from [employer]. Review of Systems Const Denies fatigue, Denies fever(s) and Denies weakness Eyes Reports no additional complaints ENT Reports no additional complaints, Denies dysphagia, Denies otalgia, Denies facial pain, Denies hoarseness and Denies odynophagia Card Reports no additional complaints Resp Reports no additional complaints GI Denies dysphagia, Denies diarrhea, Denies nausea, Denies odynophagia and Denies vomiting Musc Reports no additional complaints Skin/Breast Details: Multiple small bumps on forehead that have been present for an unknown amount of time Neuro Reports no additional complaints and Denies weakness Endo Denies fatigue Physical exam (Primary Care) Vital Signs: Oxygen Delivery Method Room Air 11/01/23 12:55 BMI result Body Mass Index 19.4 Tobacco/Smoking Status: Tobacco use Status Tobacco use date assessed 05/24/23 10/25/23 08:39 Patient Tobacco Use Status Never used Tobacco 10/25/23 08:39 e-Cigarette/Vaping Use Never Used 10/25/23 08:39 Thrive Assessment: Date of Thrive Assessment Date Thrive assessed 05/24/23 10/25/23 08:39 Const General: cooperative, healthy appearing, comfortable and no acute distress Nutritional Appearance: average body habitus Orientation/consciousness: patient oriented x3 Limitations: behavioral limitations HENMT Head: Yes normocephalic Ears: hearing grossly normal bilaterally, TM's normal bilaterally and EAC's normal General nose exam: Normal external nose present Face and sinus: Yes normal facial exam Mouth: Normal oral and palatal mucosa present and oropharynx normal Throat: Yes posterior oropharynx normal Eyes General: appearance normal, both eyes and all related structures Conjunctivae: conjunctivae normal Neck Neck: Yes normal visual inspection, Yes full ROM and Yes no lymphadenopathy Resp Effort & Inspection: normal respiratory effort Auscultation: clear to auscultation bilaterally, no crackles, no rales, no rhonchi and no wheezes Cardio Rate: regular rate Rhythm: regular rhythm Skin Other: Multiple small bumps on forehead without erythema, discharge or tenderness Neuro General: patient oriented x3 Extrem General: Yes normal to inspection and Yes full ROM Assessment and Plan Assessment & Plan (1) Strep pharyngitis: Code(s): J02.0 - Streptococcal pharyngitis Plan: Strep throat swab was positive and [facility], currently completing treatment with amoxicillin. Patient has been taking dose as prescribed and with meals. Stressed the importance of completing full antibiotic course regardless of improvement. Patient's symptoms have improved and has no concerns at this time. (2) Bumps on skin: Code(s): L98.9 - Disorder of the skin and subcutaneous tissue, unspecified Plan: Multiple small bumps on forehead that are nontender, nonerythematous and without discharge. Per caretakers request will be referred to [facility] for further evaluation. Plan Thank you for allowing me to participate in the care of this patient. I personally spent 20 minutes reviewing, examining and charting on this patient. Orders: Referrals Dermatology Referral L98.9 - Disorder of the skin and subcutaneous tissue, unspecified Coding Level of Care Code Est Pt Level 3 (33650) Diagnoses Strep pharyngitis J02.0 Bumps on skin L98.9
== END 2023-11-01 14:16 | disposition home or self-care (01) ==
PROVIDERS: PCP Internal Medicine
DX: J02.0 Streptococcal pharyngitis (principal); L98.9 Disorder of the skin and subcutaneous tissue, unspecified
CPT/HCPCS: 99213

== ENCOUNTER 2024-02-07 08:48 | Outpatient (AMB) | payer OTHER, SELFPAY ==
[2024-02-07 08:50] VITALS: BP 112/68; PULSE 67; O2SAT 98; BMI 20.6
--- NOTE | 2024-02-07 08:50 | A.OFFPC_ITS ---
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 Allergies No Known Allergies Allergy (Verified 02/07/24 08:50) Medication List - Last Reconciled 02/07/24 by Rl Morgan MD acetaminophen (Tylenol Extra Strength) 500 mg PO QID PRN clonidine HCl 0.2 mg PO BEDTIME ketoconazole 2% 1 appl topical 2XW oxcarbazepine (Trileptal) 150 mg PO BID [WATERPROOF mattress As directed] Tobacco use date assessed: 05/24/23 Dental Screening Dental Screen Date: 05/24/23 HPI Annual Exam- NEEDS PHQ9 + THRIVE HPI Details 34-year-old male with a history of devel opmental delay with intermittent explosive disorder having hypercholesterolemia and anemia coming in for his annual exam. Last seen in October for strep pharyngitis. no list of [facility] Medical History Ribs, multiple fractures Hypercholesterolemia Constipation Intermittent explosive disorder Diplegia of both lower extremities Mental and behavioral problem Social History Housing: Other Alcohol intake: never Patient Tobacco Use Status: Never used Tobacco Tobacco use type: Cigarette e-Cigarette/Vaping Use: Never Used Second Hand Smoke Exposure: No service: No Current occupational status: disabled Cognitive needs: No Hearing needs: No Vision needs: No Questionnaire PHQ-9 Over the last 2 weeks, how often have you been bothered by any of the following problems? 1. Little interest or pleasure in doing things: not at all 2. Feeling down, depressed, or hopeless: not at all 3. Trouble falling or staying asleep, or sleeping too much: not at all 4. Feeling tired or having little energy: not at all 5. Poor appetite or overeating: not at all 6. Feeling bad about yourself - or that you are a failure or have let yourself or your family down: not at all 7. Trouble concentrating on things, such as reading the newspaper or watching television: not at all 8. Moving or speaking so slowly that other people could have noticed. Or the opposite - being so fidgety or restless that you have been moving around a lot more than usual: not at all 9. Thoughts that you would be better off or of hurting yourself in some way: not at all Total score: 0 Depression Screening Interpretation: Negative Depression Screening Done: Yes Source: Developed by Drs. Juan Carlos Kaplan, Marilu Tello, Everardo Carpio and colleagues, with an educational hoang from [employer] Thrive Questionnaire Date Thrive assessed: 05/24/23 I am a: Parent/Caregiver What is your living situation today?: I have a steady place to live Within the past 12 months, did the food you bought not last and you didn't have the money to get more?: Often true Within the past 12 months, did you worry whether your food would run out before you got money to buy more?: Often true Do you have trouble paying for medicines?: No Do you have trouble getting transportation to medical appointments?: No Do you have trouble paying your heating and electricity bill?: No Do you have trouble taking care of your child, family member or friend?: No Do you have trouble with day-to-day activities such as bathing, preparing meals, shopping, managing finances, etc.?: No Are you currently unemployed and looking for a job?: I choose not to answer this question Are you interested in more education?: I choose not to answer this question Please select the resources that you would like help with: None Currently or been in a relationship where the following occur: I choose not to answer THRIVE Score: 2 AUDIT C Alcohol Use Questionnaire (AUDIT-C) 1. How often do you have a drink containing alcohol?: Never Total Score: 0 ROYER-7 AMB Questionnaire ROYER-7 Date ROYER - 7 assessed: 05/24/23 Feeling nervous, anxious, or on edge: 2 = More than half the days Not being able to stop or control worryin = Not at all Worrying too much about different things: 0 = Not at all Trouble relaxin = More than half the days Being so restless that it is hard to sit still: 0 = Not at all Becoming easily annoyed or irritable: 0 = Not at all Feeling afraid as if something awful might happen: 0 = Not at all Total ROYER-7 score (0-4 normal; 5-9 mild; 10-14 moderate; 15-21 severe): 4 Source: Developed by Drs. Juan Carlos Kpalan, Marilu Tello, Everardo Carpio and colleagues, with an educational hoang from [employer] Review of Systems Const Denies poor appetite and Denies weakness Eyes Denies no additional complaints ENT Reports Normal hearing present, Denies dizziness, Denies nasal congestion, Denies tinnitus and Denies sore throat Card Denies chest pain, Denies syncope, Denies rapid heart rate and Denies dyspnea Resp Denies cough and Denies dyspnea GI Denies change in stool character, Reports constipation, Denies diarrhea, Denies nausea and Denies vomiting Denies dysuria and Denies urinary frequency Neuro Reports Normal hearing present, Denies confusion, Denies dizziness, Denies syncope and Denies weakness Psych Denies confusion Physical exam (Primary Care) Vital Signs: Last Vital Signs Pulse 67 02/07/24 08:50 BP 112/68 02/07/24 08:50 Pulse Ox 98 02/07/24 08:50 Oxygen Delivery Method Room Air 02/07/24 08:50 BMI result Body Mass Index 20.6 Tobacco/Smoking Status: Tobacco use Status Tobacco use date assessed 05/24/23 02/07/24 08:51 Patient Tobacco Use Status Never used Tobacco 02/07/24 08:51 Tobacco use type Cigarette 02/07/24 08:51 e-Cigarette/Vaping Use Never Used 02/07/24 08:51 PHQ-9: PHQ-9 Score PHQ-9: Total score 0 02/07/24 08:51 Depression Screening Interpretation: Negative Thrive Assessment: Date of Thrive Assessment Date Thrive assessed 05/24/23 02/07/24 08:51 Currently or been in a relationship where the following occur: I choose not to answer Const General: No confusion Orientation/consciousness: No confusion HENMT Head: Yes normocephalic Ears: external ears normal and TM's normal bilaterally Face and sinus: Yes normal facial exam Mouth: moist mucous membranes Throat: Yes tonsils normal Eyes Conjunctivae: conjunctivae normal Pupils: Equal, round and reactive pupils present and Pupil accommodation reflex normal Direct Ophthalmoscopy: normal light reflex Neck Neck: No lymphadenopathy Thyroid: Thyroid normal Chest Chest palpation & inspection: normal inspection of the chest Resp Effort & Inspection: normal respiratory effort and no audible wheezes Auscultation: clear to auscultation bilaterally, no crackles, no wheezes and lung sounds not diminished Cardio Rate: regular rate Rhythm: regular rhythm Peripheral pulses: radial pulses present and dorsalis pedis present GI Other: visual normal Palpation (GI): no masses Auscultation: normal bowel sounds and normoactive bowel sounds Rectal Exam - Male: Yes deferred Male General Exam: Yes normal external exam Skin Other: multiple small subcentimeter abrasion , L inner canthus, forehead , R pinna L infraorbital Rashes: no rashes Neuro General: No confusion Cranial nerves: Yes Equal, round and reactive pupils present and Yes Normal hearing present Cognition (Neuro): normal cognition Gait exam (Neuro): Normal gait present Motor exam (neuro): 5/5 motor strength present throughout Deep tendon reflexes (DTR's): Right brachioradialis reflex intensity grade: 2+, Left brachioradialis reflex intensity grade: 2+, Right patellar reflex intensity grade: 2+ and Left patellar reflex intensity grade: 2+ Extrem General: No edema Coding Level of Care Code Est Pt Prev Care 18-39y(04430) Diagnoses Annual physical exam Z00.00 Intermittent explosive disorder F63.81 Hypercholesterolemia E78.00 Assessment & Plan Assessment & Plan (1) Annual physical exam: Code(s): Z00.00 - Encounter for general adult medical examination without abnormal findings Category: Medical Plan: Patient is advised to eat healthy, keep well hydrated, keep active and have adequate sleep. (2) Intermittent explosive disorder: Comment: Code(s): F63.81 - Intermittent explosive disorder Category: Medical Plan: Continue to follow-up with psychiatry and counseling. (3) Hypercholesterolemia: Code(s): E78.00 - Pure hypercholesterolemia, unspecified Category: Medical Plan: Avoid fried foods, chicken skin, eggs, butter margarine, pastries and meat. Be it pork or beef they have a lot of cholesterol last years blood work within normal limits. Orders: Orders Comprehensive Met. Panel Today F63.81 - Intermittent explosive disorder Thyroid Stimulating Hormone Today F63.81 - Intermittent explosive disorder Complete Blood Count Auto Diff Today F63.81 - Intermittent explosive disorder Free T4 (Free Thyroxine) Today F63.81 - Intermittent explosive disorder Lipid Panel Today E78.00 - Pure hypercholesterolemia, unspecified, F63.81 - Intermittent explosive disorder Vitamin B12 and Folate Today F63.81 - Intermittent explosive disorder
== END 2024-02-07 09:59 | disposition home or self-care (01) ==
PROVIDERS: PCP Internal Medicine; Visit Provider Internal Medicine
DX: Z00.00 Encounter for general adult medical examination without abnormal findings (principal); F63.81 Intermittent explosive disorder; E78.00 Pure hypercholesterolemia, unspecified; Z23 Encounter for immunization

== ENCOUNTER → 2024-02-07 08:48 | Outpatient (BNVA) | payer OTHER, SELFPAY | PROVIDERS: PCP Internal Medicine; Visit Provider Internal Medicine | DX: Z00.01 Encounter for general adult medical examination with abnormal findings (principal); Z23 Encounter for immunization; E78.00 Pure hypercholesterolemia, unspecified; F63.81 Intermittent explosive disorder; Z71.3 Dietary counseling and surveillance | CPT/HCPCS: 90471; 90656; 96127; 99395 ==

== ENCOUNTER 2025-02-12 08:43 | Outpatient (AMB) | payer OTHER, SELFPAY ==
--- NOTE | 2025-02-12 09:08 | A.OFFPC_ITS ---
Vital Signs 02/12/25 09:14 Height 5 ft 2.6 in Weight 124 lb BMI 22.2 BP 120/70 Blood Pressure Location Lt brachial Position Sitting Pulse Source Pulse Oximeter Temp 97.1 F Temp Source Temporal Artery Scan Pulse Oximetry (%) 99 Oxygen Delivery Method Room Air Intake Visit Reasons: PE Allergies No Known Allergies Allergy (Verified 02/12/25 09:14) Medication List - Last Reconciled 02/12/25 by Rl Morgan MD clonidine HCl 0.2 mg PO BEDTIME oxcarbazepine (Trileptal) 150 mg PO BID [WATERPROOF mattress As directed] Tobacco use date assessed: 02/12/25 Dental Screening Dental Screen Date: 02/12/25 Did you have a dental visit in the last 12 months?: Yes Did you have a dental problem in the last 6 months where you did not have access to dental care?: No Was dental information given to patient?: Patient has dentist [facility] Medical History Ribs, multiple fractures Hypercholesterolemia Constipation Intermittent explosive disorder Diplegia of both lower extremities Mental and behavioral problem Social History Housing: Other Alcohol intake: never Patient Tobacco Use Status: Never used Tobacco Tobacco use type: Cigarette e-Cigarette/Vaping Use: Never Used Second Hand Smoke Exposure: No service: No Current occupational status: disabled Cognitive needs: No Hearing needs: No Vision needs: No Questionnaire PHQ-9 Over the last 2 weeks, how often have you been bothered by any of the following problems? 1. Little interest or pleasure in doing things: not at all 2. Feeling down, depressed, or hopeless: not at all 3. Trouble falling or staying asleep, or sleeping too much: not at all 4. Feeling tired or having little energy: not at all 5. Poor appetite or overeating: not at all 6. Feeling bad about yourself - or that you are a failure or have let yourself or your family down: not at all 7. Trouble concentrating on things, such as reading the newspaper or watching television: not at all 8. Moving or speaking so slowly that other people could have noticed. Or the opposite - being so fidgety or restless that you have been moving around a lot more than usual: not at all 9. Thoughts that you would be better off or of hurting yourself in some way: not at all Total score: 0 Source: Developed by Drs. Juan Carlos Kaplan, Marilu Tello, Everardo Carpio and colleagues, with an educational hoang from [employer]. Thrive Questionnaire Date Thrive assessed: 02/12/25 I am a: Parent/Caregiver What is your living situation today?: I have a steady place to live Within the past 12 months, did the food you bought not last and you didn't have the money to get more?: Never true Within the past 12 months, did you worry whether your food would run out before you got money to buy more?: Never true Do you have trouble paying for medicines?: No Do you have trouble getting transportation to medical appointments?: No Do you have trouble paying your heating and electricity bill?: No Do you have trouble taking care of your child, family member or friend?: No Do you have trouble with day-to-day activities such as bathing, preparing meals, shopping, managing finances, etc.?: No Are you currently unemployed and looking for a job?: No Are you interested in more education?: No Please select the resources that you would like help with: None Currently or been in a relationship where the following occur: I choose not to answer THRIVE Score: 0 AUDIT C Alcohol Use Questionnaire (AUDIT-C) 1. How often do you have a drink containing alcohol?: Never 3. How often do you have six or more drinks on one occasion?: Never Total Score: 0 ROYER-7 AMB Questionnaire ROYER-7 Date ROYER - 7 assessed: 02/12/25 Feeling nervous, anxious, or on edge: 2 = More than half the days Not being able to stop or control worryin = More than half the days Worrying too much about different things: 2 = More than half the days Trouble relaxin = More than half the days Being so restless that it is hard to sit still: 2 = More than half the days Becoming easily annoyed or irritable: 2 = More than half the days Feeling afraid as if something awful might happen: 0 = Not at all Total ROYER-7 score (0-4 normal; 5-9 mild; 10-14 moderate; 15-21 severe): 12 Source: Developed by Drs. Juan Carlos Kaplan, Marilu Tello, Everardo Carpio and colleagues, with an educational hoang from [employer]. ROYER-7 Assessment Billing ROYER-7 Assessment Tool: ROYER-7 Assessment 77529 Review of Systems Const Denies poor appetite and Denies weakness Eyes Denies no additional complaints ENT Reports Normal hearing present, Denies dizziness, Denies nasal congestion, Denies tinnitus and Denies sore throat Card Denies chest pain, Denies syncope, Denies rapid heart rate and Denies dyspnea Resp Denies cough and Denies dyspnea GI Denies change in stool character, Reports constipation, Denies diarrhea, Denies nausea and Denies vomiting Denies dysuria and Denies urinary frequency Neuro Reports Normal hearing present, Denies confusion, Denies dizziness, Denies syncope and Denies weakness Psych Denies confusion Physical exam (Primary Care) Vital Signs: Last Vital Signs Temp 97.1 F 02/12/25 09:14 BP 120/70 02/12/25 09:14 Pulse Ox 99 02/12/25 09:14 Oxygen Delivery Method Room Air 02/12/25 09:14 BMI result Body Mass Index 22.2 Tobacco/Smoking Status: Tobacco use Status Tobacco use date assessed 02/12/25 02/12/25 09:16 Patient Tobacco Use Status Never used Tobacco 02/12/25 09:09 Tobacco use type Cigarette 02/12/25 09:09 e-Cigarette/Vaping Use Never Used 02/12/25 09:09 PHQ-9: PHQ-9 Score PHQ-9: Total score 0 02/12/25 09:58 Thrive Assessment: Date of Thrive Assessment Date Thrive assessed 02/12/25 02/12/25 09:16 Currently or been in a relationship where the following occur: I choose not to answer Const General: alert and awake; No confusion Orientation/consciousness: No confusion HENMT Head: Yes normocephalic Ears: external ears normal and TM's normal bilaterally Face and sinus: Yes normal facial exam Mouth: moist mucous membranes Throat: Yes tonsils normal Eyes Conjunctivae: conjunctivae normal Pupils: Equal, round and reactive pupils present and Pupil accommodation reflex normal Direct Ophthalmoscopy: normal light reflex Neck Neck: No lymphadenopathy Thyroid: Thyroid normal Chest Chest palpation & inspection: normal inspection of the chest Resp Effort & Inspection: normal respiratory effort and no audible wheezes Auscultation: clear to auscultation bilaterally, no crackles, no wheezes and lung sounds not diminished Cardio Rate: regular rate Rhythm: regular rhythm Peripheral pulses: radial pulses present and dorsalis pedis present GI Palpation (GI): no masses Auscultation: normal bowel sounds and normoactive bowel sounds Rectal Exam - Male: Yes deferred Skin General skin exam: no rashes or lesions noted Rashes: no rashes Neuro General: deep tendon reflexes 2+ bilaterally and No confusion Cranial nerves: Yes Equal, round and reactive pupils present, Yes Midline tongue present, Yes Normal hearing present and Yes Ability to bilaterally elevate shoulders present Cognition (Neuro): normal cognition Gait exam (Neuro): Normal gait present Motor exam (neuro): 5/5 motor strength present throughout Deep tendon reflexes (DTR's): Right brachioradialis reflex intensity grade: 2+, Left brachioradialis reflex intensity grade: 2+, Right patellar reflex intensity grade: 2+ and Left patellar reflex intensity grade: 2+ Extrem General: No edema Office Procedures Flu Questionnaire Does the patient have a severe egg allergy?: No Does the patient have severe life threatening allergies?: No Does the patient have a fever or illness today?: No Has the patient ever had Guillain-[place] Syndrome?: No Has the patient ever had any past reaction to a flu shot?: No Immunizations Fluarix 4036-7342 (PF) 45 mcg (15 mcg x 3)/0.5 mL IM syringe Performing Provider: Rl Morgan MD Performing Location: [facility] Administered by: Melissa Bowden CMA on 02/12/25 09:58 Dose Route Admin Location Dispensed Lot Number Expiration Date NDC Reuse Technician 0.5 mL IM Right Deltoid 0.5 mL [id number] 10/21/25 19542-659-41 [employer] VIS Given Date VIS Provided VIS Publication Date 02/12/25 Single Vaccine 24 Eligibility Eligibility Date Funding Source Not [facility] Eligible 02/12/25 Private Tenivac (PF) 5 Lf unit-2 Lf unit/0.5 mL intramuscular suspension Performing Provider: Rl Morgan MD Performing Location[facility] Administered by: Melissa Bowden CMA on 02/12/25 09:58 Dose Route Admin Location Dispensed Lot Number Expiration Date NDC Reuse Technician 0.5 mL IM Left Deltoid 0.5 mL [id number] 07/23/26 [id number] [employer] Total Dispensed Waste 0.5 mL 0 % VIS Given Date VIS Provided VIS Publication Date 02/12/25 Single Vaccine 20 Eligibility Eligibility Date Funding Source Not [facility] Eligible 02/12/25 Private Coding Level of Care Code Est Pt Prev Care 18-39y(52574) Diagnoses Annual physical exam Z00.00 Diplegia of both lower extremities G82.20 Hypercholesterolemia E78.00 Intermittent explosive disorder F63.81 Paronychia of finger of left hand L03.012 Additional Codes ROYER-7 Assessment Billing - ROYER-7 Assessment Tool: ROYER-7 Assessment [id number] ([id number]) Assessment & Plan Assessment & Plan (1) Annual physical exam: Code(s): Z00.00 - Encounter for general adult medical examination without abnormal findings Category: Medical Plan: Patient is advised to eat healthy, keep well hydrated, keep active and have adequate sleep. 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 Be it pork or beef they have a lot of cholesterol (4) Intermittent explosive disorder: Comment: Code(s): F63.81 - Intermittent explosive disorder Category: Medical Plan: Continue to follow-up with psychiatry. With the medication lab work is requested (5) Paronychia of finger of left hand: Code(s): L03.012 - Cellulitis of left finger Category: Medical Plan History of Present Illness The patient is a 35-year-old male presenting for a physical examination and preventative care. The patient has a history of developmental delay diplegia and intermittent explo sive disorder, requiring ongoing psychiatric follow-up. He has hypercholesterolemia, managed with a cholesterol plan, and his last blood work showed normal cholesterol levels. The patient has a history of anemia and mild leukopenia, with recent blood work confirming mild leukopenia. His electrolytes, renal function, blood sugar, and liver function were normal. He has gained 9 pounds since his last visit, but his weight is stable. He is due for tetanus and influenza vaccinations as part of his preventative care. Health Maintenance - Tetanus vaccination due - Influenza vaccination due - Annual blood work recommended to monitor anemia and leukopenia Social History - Housing: Patient resides in a shared living setting Review of Systems - General: Reports weight gain of 9 pounds - Respiratory: Denies cough, dyspnea, or wheezing - Cardiovascular: Denies chest pain or palpitations - Gastrointestinal: Denies nausea, vomiting, or abdominal pain - Genitourinary: Reports increased frequency of urination, especially at night - Neurological: Denies headaches or dizziness Physical Exam General: Cooperative, healthy appearing, comfortable, no acute distress and well developed Orientation: Patient oriented x3 Limitations: No limitations Head: Normal to inspection Ears: Hearing grossly normal bilaterally, some earwax noted on the outside of one ear Nose: Normal external nose present Face and sinus: Normal facial exam Eyes: Appearance normal, both eyes and all related structures Neck: Normal visual inspection and Yes full ROM Respiratory: Normal respiratory effort and able to speak in complete sentences. Clear to auscultation bilaterally Cardiovascular: Regular rate and rhythm. Normal S1 and S2 GI: Normal to inspection. Soft to palpation and nontender Skin: No rashes or lesions noted, but patient has been picking at a spot, advised against it due to risk of infection Neuro: Patient oriented x3 Extremities: Normal to inspection, patient has been peeing more often, possibly due to increased water intake Results - Labs: Mild leukopenia, normal electrolytes, renal function, blood sugar, liver function, and cholesterol Plan Patient was informed and verbally consented to the use of an ambient scribe for clinic note documentation during this visit. 1. Developmental Delay Diplegia Supportive care will continue for developmental delay diplegia, with no new in terventions discussed. 2. Intermittent Explosive Disorder Continued follow-up with psychiatry is advised for intermittent explosive disorder management. 3. Hypercholesterolemia The patient will maintain the current cholesterol management plan, with regular lipid monitoring. 4. Anemia Annual blood work will monitor anemia, with no immediate management changes discussed. 5. Mild Leukopenia Regular blood work will monitor leukopenia, with no immediate interventions required. 6. Preventative Care Tetanus and influenza vaccinations are scheduled as part of routine preventative care. Discussion Notes During the visit, we discussed the importance of continuing psychiatric follow- up for intermittent explosive disorder and maintaining the current cholesterol management plan. We also reviewed the need for regular blood work to monitor anemia and leukopenia. The patient was informed about the upcoming tetanus and influenza vaccinations as part of preventative care. Patient Instructions - Continue follow-up with psychiatry for intermittent explosive disorder. - Maintain current cholesterol management plan. - Schedule and receive tetanus and influenza vaccinations. - Monitor weight and report any significant changes. - Return for annual blood work to monitor anemia and leukopenia. Orders: Orders Complete Blood Count Auto Diff Today F63.81 - Intermittent explosive disorder Free T4 (Free Thyroxine) Today F63.81 - Intermittent explosive disorder Vitamin B12 and Folate Today F63.81 - Intermittent explosive disorder Influenza [id number] Immunization Today Z23 - Encounter for immunization Comprehensive Met. Panel Today F63.81 - Intermittent explosive disorder Thyroid Stimulating Hormone Today F63.81 - Intermittent explosive disorder Lipid Panel Today E78.00 - Pure hypercholesterolemia, unspecified, F63.81 - Intermittent explosive disorder Td Immunization Today Z23 - Encounter for immunization Medications: New amoxicillin 875 mg PO BID 14 tabs 0RF L03.012 - Cellulitis of left finger
[2025-02-12 09:14] VITALS: BP 120/70; TEMP 36.2; O2SAT 99; BMI 22.2
== END 2025-02-12 11:11 | disposition home or self-care (01) ==
LOC: HO.HMCH 08:44
PROVIDERS: PCP Internal Medicine; Visit Provider Internal Medicine
DX: Z00.00 Encounter for general adult medical examination without abnormal findings (principal); G82.20 Paraplegia, unspecified; E78.00 Pure hypercholesterolemia, unspecified; F63.81 Intermittent explosive disorder; L03.012 Cellulitis of left finger; Z23 Encounter for immunization

== ENCOUNTER → 2025-02-12 08:43 | Outpatient (BNVA) | payer OTHER, SELFPAY | PROVIDERS: PCP Internal Medicine; Visit Provider Internal Medicine | DX: Z00.00 Encounter for general adult medical examination without abnormal findings (principal); E78.00 Pure hypercholesterolemia, unspecified; F63.81 Intermittent explosive disorder; L03.012 Cellulitis of left finger; G83.0 Diplegia of upper limbs; Z23 Encounter for immunization | CPT/HCPCS: 90471; 90472; 90656; 90714; 96127; 99395 ==